=== PATIENT | female | born 1965 | race Caucasian/White ===

== ENCOUNTER 2019-04-19 13:58 | Emergency (ER) | payer OTHER, SELFPAY ==
[2019-04-19] VITALS (7 sets, daily range): BP systolic 125–140; BP diastolic 70–84; PULSE 74–80; RESP 16–18; TEMP 36.9; O2SAT 97–98; BMI 36.8
--- NOTE | 2019-04-19 14:01 | DI.RAD.S_ITS ---
PROCEDURE: XR ANKLE LT MIN 3V INDICATIONS: fall later pain TECHNIQUE: 3 views of the ankle were acquired. COMPARISON: None. FINDINGS: Bones: There is a small fracture identified at the tip of the lateral malleolus. No additional fractures are evident. The ankle mortise is well-maintained. No suspicious osseous lesions are evident. There is a moderate-sized plantar calcaneal spur. Soft tissues: There is a small tibiotalar joint effusion. Moderate soft tissue swelling about the ankle is more pronounced overlying the lateral malleolus. IMPRESSION: Nondisplaced small avulsion fracture involving the tip of the lateral malleolus. Dictated by: Jimmy Keenan M.D. on 04/19/2019 at 13:31 Approved by: Jimmy Keenan M.D. on 04/19/2019 at 13:33
--- NOTE | 2019-04-19 14:07 | ED_ITS ---
HPI - Fall General Chief Complaint: Trauma Stated Complaint: Fell off hiking trail Time Seen by Provider: 04/19/19 14:01 Source: patient Mode of arrival: ambulatory Limitations: no limitations History of Present Illness HPI Narrative: Patient is a 53-year-old female who presents with left ankle pain. She had a fall at dissection past she rolled down about 20 all along a pack. Apparently her was able to help support her neck as she rolled. There was no loss of consciousness of she has no neck pain. No nausea vomiting. Her hips are nontender. Sounds as though she trips and falls frequently. She just strained her other ankle. MD complaint: fall Fall from: standing Fall witnessed: yes, by family Place fall occurred: other (Outside) Loss of consciousness: none Review of Systems Review of Systems ROS Unobtainable: All systems reviewed & are unremarkable except as noted in HPI and below Constitutional Denies chills, Denies fever(s), Denies lethargy and Denies weakness Eyes Denies change in vision, Denies eye discharge, Denies irritation and Denies loss of vision ENT Ears, Nose, Mouth, and Throat: Denies change in voice, Denies neck pain and Denies sore throat Cardiovascular Denies chest pain, Denies irregular heart rhythm, Denies lightheadedness, Denies palpitations, Denies dyspnea, Denies dyspnea on exertion and Denies orthopnea Respiratory Denies cough, Denies dyspnea, Denies dyspnea on exertion and Denies wheezing Gastrointestinal Gastrointestinal: Denies abdominal pain, Denies change in bowel habits, Denies diarrhea, Denies nausea and Denies vomiting Genitourinary Denies hematuria, Denies flank pain, Denies urinary incontinence and Denies urinary urgency Musculoskeletal Reports as per HPI and Denies neck pain Integumentary/Breasts Denies pruritus, Denies erythema, Denies rash and Denies wounds Neurologic Denies loss of vision and Denies weakness Endocrine Denies palpitations Allergic/Immunologic Denies wheezing Exam Initial Vital Signs Initial Vital Signs: Vital Signs Pulse Rate 80 04/19/19 14:07 GENERAL: Well-appearing, well-nourished and in no acute distress. HEENT: Head atraumatic, no sign of trauma no crepitations or depressions no abrasion EOMI, pupils reactive, NECK: No vertebral tenderness no step-offs full flexion extension and rotation CARDIOVASCULAR: Regular rate and rhythm without murmurs, rubs or gallops. RESPIRATORY: Breath sounds equal bilaterally, no wheezes rales or rhonchi. ABDOMEN: Soft, nontender. Normoactive bowel sounds all 4 quadrants. No guarding or rebound. BACK: No vertebral tenderness no step-offs no sign of trauma EXTREMITIES: Normal range of motion, no clubbing or edema. Neurovascularly intact Left ankle lateral swelling peripheral pulses intact NEUROLOGICAL: Alert and oriented x4.Normal gait and speech. Cranial nerves II through XII grossly intact. Claims Adjuster Supervisor strength equal SKIN: Skin abrasion noted left posterior scapula area. No laceration [facility] Medical History Epilepsy (Acute) Hypothyroid (Acute) Polycystic ovarian syndrome (Acute) Social History Smoking Status: Never smoker Procedures Orthopedic Splinting/Casting Injury #1: Side: left Lower Extremity Injury Location: lower leg Lower Extremity Immobilizer: boot orthosis Other Orthopedic Equipment: crutches Post splinting neuro exam: intact Post splinting vascular exam: intact Placed by: Nursing Course Orders Ordered: ED Orders 04/19/19 14:01 XR ankle LT min 3V Stat Discontinued Medications Acetaminophen (Tylenol) 325 mg PO NOW ONE Stop: 04/19/19 15:22 Last Admin: 04/19/19 15:23 Dose: 325 mg Vital Signs - 8 hr 04/19/19 14:07 04/19/19 14:09 04/19/19 14:10 Temperature 98.4 F Pulse Rate 80 77 Pulse Rate [Left Dorsalis Pedis] 80 Respiratory Rate 18 18 Blood Pressure 125/81 Blood Pressure [Right Arm] 138/78 Pulse Oximetry 97 97 04/19/19 14:30 04/19/19 14:45 04/19/19 15:00 Temperature Pulse Rate 75 80 74 Pulse Rate [Left Dorsalis Pedis] Respiratory Rate 18 18 16 Blood Pressure Blood Pressure [Right Arm] 133/70 140/78 138/84 Pulse Oximetry 97 97 98 04/19/19 15:16 Temperature Pulse Rate 80 Pulse Rate [Left Dorsalis Pedis] Respiratory Rate 18 Blood Pressure Blood Pressure [Right Arm] 139/79 Pulse Oximetry 98 MDM - Fall Imaging Data left ankle: Radiologist's impression: PROCEDURE: XR ANKLE LT MIN 3V INDICATIONS: fall later pain TECHNIQUE: 3 views of the ankle were acquired. COMPARISON: None. FINDINGS: Bones: There is a small fracture identified at the tip of the lateral malleolus. No additional fractures are evident. The ankle mortise is well-maintained. No suspicious osseous lesions are evident. There is a moderate-sized plantar calcaneal spur. Soft tissues: There is a small tibiotalar joint effusion. Moderate soft tissue swelling about the ankle is more pronounced overlying the lateral malleolus. IMPRESSION: Nondisplaced small avulsion fracture involving the tip of the lateral malleolus. Dictated by: Jimmy Keenan M.D. on 04/19/2019 at 13:31 Approved by: Jimmy Keenan M.D. on 04/19/2019 at 13:33 MDM Narrative Medical decision making narrative: The patient has an isolated left ankle injury. At this time she has no signs or symptoms to suggest head injury. At this time I do not think she needs head CT or further imaging. He seems to be doing much better. She is offered pain medication however she has a trained gasoline tester and aroma therapist and has concoction is at home Discharge Plan Departure Patient Disposition: Home Clinical Impression: Ankle fracture, left Qualifiers: Encounter type: initial encounter Fracture type: closed Qualified Code(s): S82.892A - Other fracture of left lower leg, initial encounter for closed fracture Discharge Date/Time: 04/19/19 16:03 Interventions: ED Discharge Assessment Last Done: 04/19/19 16:02 Instructions: DI for Ankle Fracture Activity Restrictions/Additional Instructions: *You have been diagnosed with left ankle fracture *What to do: You have a small left ankle fracture. This can be managed in a walking boot. Please wear your walking boot at all times for about 6 weeks. Y ou will need to follow up with Orthopedics *Continue to take medications as directed *Follow up with your primary care provider in 2-3 days *Return to ER if you should have weakness, numbness, tingling, increasing pain or any new, worsening or concerning symptoms
--- NOTE | 2019-04-19 14:15 | PC.NURSE ---
Ice applied to Left ankle
[2019-04-19] MEDS: ACETAMINOPHEN 325 MG TABLET PO (15:23)
--- NOTE | 2019-04-19 16:01 | PC.NURSE ---
CMS intact in LLE s/p placement of walking boot. Crutches given and instructions reviewed with use of boot and crutches. Return demonstration of use of crutches and boot completed. Pt abrasions cleansed with sterile saline and telfa with paper tape. Pt pushed in wheelchair by family from ER to car. Pt is alert and oriented and pain is 2/10.
== END 2019-04-19 16:03 | disposition home or self-care (01) ==
LOC: ED 15:31
PROVIDERS: Emergency Provider Emergency Medicine
DX: S82.892A Other fracture of left lower leg, initial encounter for closed fracture (principal); X50.9XXA Other and unspecified overexertion or strenuous movements or postures, initial encounter; W17.81XA Fall down embankment (hill), initial encounter; Y93.01 Activity, walking, marching and hiking
CPT/HCPCS: 73610; 99283